=== PATIENT | female | born 1965 | race Caucasian/White ===

== ENCOUNTER 2024-07-07 09:52 | Emergency (ER) | payer OTHER, SELFPAY ==
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
[2024-07-07 10:16] VITALS: BP 145/56; PULSE 69; RESP 18; TEMP 36.5; O2SAT 97; BMI 38.6
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
[2024-07-07 11:51] VITALS: BP 145/56; PULSE 69; RESP 18; TEMP 36.5; O2SAT 97
== END 2024-07-07 11:51 | disposition home or self-care (01) ==
PROVIDERS: Emergency Provider Emergency Medicine
DX: S20.02XA Contusion of left breast, initial encounter (principal); S40.011A Contusion of right shoulder, initial encounter; R07.89 Other chest pain; M25.511 Pain in right shoulder; V43.62XA Car passenger injured in collision with other type car in traffic accident, initial encounter; Y93.89 Activity, other specified; Y92.488 Other paved roadways as the place of occurrence of the external cause; Y99.8 Other external cause status
CPT/HCPCS: 71111; 73030; 99282; 99283